=== PATIENT | female | born 1985 | race African-American/Black ===

== ENCOUNTER 2016-06-29 10:22 | Emergency (ER) | payer MEDICARE ==
[2016-06-29 11:16] LABS: BILIRUBIN NEGATIVE (NEGATIVE); BLOOD NEGATIVE Ery/uL (NEGATIVE); CLARITY CLEAR (CLEAR); COLOR YELLOW (YELLOW); GLUCOSE (U) NORMAL (NORMAL); KETONE (U) NEGATIVE (NEGATIVE); LEUKOCYTES TRACE Leu/uL (NEGATIVE); NITRITE NEGATIVE (NEGATIVE); PROTEIN NEGATIVE (NEGATIVE)
[2016-06-29 11:24] LABS: BACTERIA 1+
[2016-06-29 11:37] LABS: BASOPHIL 0.3 % (0-2); EOSINOPHIL 0.6 % (0-5); HCT 36.8 % (37.0-47.0); HGB 12.4 g/dl (12.5-16.0); LYMPHOCYTE 20.1 % (15-48); MCH 26.2 pg (25.0-31.0); MCHC 33.7 g/dL (32.0-36.0); MCV 77.8 fL (78.0-100.0); MONOCYTE 5.7 % (0-12); MPV 11.3 fL (6.0-9.5); NEUTROPHIL 73.3 % (41-80); PLT 214 K/uL (150-400); RBC 4.73 M/uL (4.20-5.40); WBC 10.4 K/uL (4.0-10.5)
[2016-06-29 12:00] LABS: ALBUMIN 4.3 g/dL (3.5-5.0); BILIRUBIN - TOTAL 0.5 mg/dL (0.1-1.0); CREATININE 0.8 mg/dL (0.5-1.0); GLOBULIN (CALCULATION) 2.9 g/dL (2.2-4.2); POTASSIUM 3.6 mmol/L (3.5-5.1); TOTAL PROTEIN 7.2 g/dL (6.4-8.3)
== END 2016-06-29 12:51 | disposition home or self-care (01) ==
LOC: FER 10:22
PROVIDERS: Emergency Medicine
DX: N39.0 Urinary tract infection, site not specified (principal); F17.210 Nicotine dependence, cigarettes, uncomplicated
CPT/HCPCS: 36415; 74000; 80053; 81001; 82150; 83690; 85025; 87210